=== PATIENT | male | born 1970 | race African-American/Black ===

== ENCOUNTER 2022-09-29 18:20 | Emergency (ER) | payer OTHER ==
[~2022-09-29] VITALS: Ht 188 cm; Wt 127.0 kg
[2022-09-29 18:44] VITALS: O2SAT 99
[2022-09-29] MEDS ORDERED: KETOROLAC 30MG/ML VIAL IV STA (22:50)
[2022-09-29] MEDS ORDERED: SODIUM CHLORIDE 0.9% 1,000 ML IV ONE (23:00)
[2022-09-29 23:38] LABS: BASOPHILS % 0.7 % (0.0-2.0); EOSINOPHILS % 2.1 % (0.0-5.0); HEMATOCRIT. 46.1 % (42.0-52.0); HEMOGLOBIN. 14.6 g/dL (14.0-18.0); LYMPHOCYTES % 47.4 % (20.0-50.0); MEAN CORPUSCULAR HEMOGLOBIN 27.4 pg (28.0-32.0); MEAN CORPUSCULAR HGB CONC 31.7 g/dL (31.0-37.0); MEAN CORPUSCULAR VOLUME 86.7 fL (80.0-94.0); MEAN PLATELET VOLUME 8.1 fl (7.4-10.4); MONOCYTES % 10.3 % (2.0-8.0); NEUTROPHILS % 39.5 % (40.0-76.0); PLATELET 283 x1000/uL (130-400); RED BLOOD CELL COUNT 5.32 mill/uL (4.7-6.1); WHITE BLOOD COUNT 4.8 x1000/uL (4.5-11.0)
[2022-09-29 23:45] LABS: PROTHROMBIN TIME 10.9 sec (9.6-11.0)
[2022-09-29 23:51] LABS: CHLORIDE 102 mEq/L (98-107); INDEX HEMOLYSI 1 (1-3); INDEX ICTERIC 1 (1-4); INDEX LIPEMIC 1 (1-3); POTASSIUM 3.2 mEq/L (3.5-5.1); SODIUM 135 mEq/L (136-145)
[2022-09-30 00:04] LABS: ALANINE AMINOTRANSFERASE 88 IU/L (13-61); ALBUMIN 4.2 g/dL (3.4-5.0); ASPARTATE AMINOTRANSFERASE 54 IU/L (15-37); BILIRUBIN TOTAL 0.8 mg/dL (0.1-1.0); CALCIUM 9.4 mg/dL (8.5-10.1); CARBON DIOXIDE 29 mEq/L (21-32); CREATININE 1.1 mg/dL (0.6-1.3); GLUCOSE 99 mg/dL (70-105); PROTEIN TOTAL 8.6 g/dL (6.0-8.3); UREA NITROGEN BLOOD 9 mg/dL (7-21)
[2022-09-30 03:43] LABS: CLARITY URINE CLEAR (CLEAR); COLOR URINE YELLOW (YELLOW); GLUCOSE URINE NEGATIVE (NEGATIVE); KETONES URINE NEGATIVE (NEGATIVE); LEUKOCYTE ESTERASE URINE NEGATIVE (NEGATIVE); NITRITE URINE NEGATIVE (NEGATIVE); OCCULT BLOOD URINE NEGATIVE (NEGATIVE); PROTEIN URINE 1+ (NEGATIVE); SPECIFIC GRAVITY URINE 1.015 (1.005-1.030)
[2022-09-30 04:20] LABS: BACTERIA URINE TRACE; RBC URINE NONE SEEN /hpf (0-2); SQUAMOUS EPITHELIAL CELL URINE RARE /lpf (RARE/1+); WBC URINE NONE SEEN /hpf (0-2)
[2022-09-30] MEDS ORDERED: MED4 MT (05:59)
[2022-09-30] MEDS ORDERED: ACET-2708 MT (05:59)
[2022-09-30] MEDS ORDERED: BACL-141 MT (05:59)
[2022-09-30] MEDS ORDERED: LIDO700A15 TP (05:59)
[2022-09-30 06:00] VITALS: BP 179/96; PULSE 71; RESP 15; TEMP 98.2
== END 2022-09-30 06:13 | disposition home or self-care (01) ==
LOC: ER 18:20
DX: R10.32 Left lower quadrant pain (principal); I10 Essential (primary) hypertension; Z79.899 Other long term (current) drug therapy
CPT/HCPCS: 99284; 74176; 80053; 83690; 85025; 85610; 36415; 81003; J7030